=== PATIENT | male | born 1985 | race Caucasian/White ===

== ENCOUNTER 2017-04-18 23:43 | Emergency (ER) | payer OTHER ==
[2017-04-19] MEDS ORDERED: Lidocaine 1%* 5 ML VIAL ONE (01:54)
--- NOTE | 2017-04-19 02:15 | ED ---
Vj Goode Benjamin, scribed for Sandie Metz MD on 04/19/17 at 0212 . Laceration/Wound HPI - HPI Summary HPI Summary: 32yo male presents to ED with a left 2nd finger laceration from hatchet. Pt cut himself when trying to hatchet some wood logs around 19:30 tonight. Pt states hatchet has been only used to cutting hare previously. Left 2nd finger ROM intact. Last tetanus shot was within 10 years. - History of Current Complaint Stated Complaint: LT INDEX FINGER LAC Hx Obtained From: Patient Mechanism of Injury: Sharp/Blunt Trauma Onset/Duration: Sudden Onset, Still Present Aggravating: Nothing Alleviating: Nothing Timing: Constant Onset Severity: Mild Current Severity: Mild Pain Intensity: 2 Pain Scale Used: 0-10 Numeric Associated Signs & Symptoms: Negative - Allergy/Home Medications Allergies/Adverse Reactions: Allergies Allergy/AdvReac Type Severity Reaction Status Date / Time No Known Allergies Allergy Verified 04/18/17 23:49 PMH/Surg Hx/FS Hx/Imm Hx - Immunization History Date of Tetanus Vaccine: unknown Infectious Disease History: No Infectious Disease History: Denies: Traveled Outside the [place] in Last 30 Days Review of Systems Constitutional: Negative Eyes: Negative ENT: Negative Cardiovascular: Negative Respiratory: Negative Gastrointestinal: Negative Genitourinary: Negative Musculoskeletal: Negative Positive: Other - left 2nd finger laceration Neurological: Negative Psychological: Normal All Other Systems Reviewed And Are Negative: Yes Physical Exam Triage Information Reviewed: Yes Vital Signs On Initial Exam: Initial Vitals Temp Pulse Resp BP Pulse Ox 97.5 F 64 18 129/86 98 04/18/17 23:47 04/18/17 23:47 04/18/17 23:47 04/18/17 23:47 04/18/17 23:47 Vital Signs Reviewed: Yes Appearance: Positive: Well-Appearing, No Pain Distress, Well-Nourished Skin: Positive: Warm, Skin Color Reflects Adequate Perfusion, Dry, Other - 2cm laceration over the left 2nd proximal phalanx Head/Face: Positive: Normal Head/Face Inspection Eyes: Positive: Normal ENT: Positive: Normal ENT inspection Neck: Positive: Supple, Nontender Respiratory/Lung Sounds: Positive: Clear to Auscultation, Breath Sounds Present Cardiovascular: Positive: RRR Abdomen Description: Positive: Nontender, Soft Bowel Sounds: Positive: Present Musculoskeletal: Positive: Strength/ROM Intact Neurological: Positive: Sensory/Motor Intact, Alert, Oriented to Person Place, Time, CN Intact II-III Psychiatric: Positive: Affect/Mood Appropriate Procedures - Laceration/Wound Repair left 2nd finger Location: upper extremity Description: Linear Anesthesia: 1.0%, Lido Length, Depth and Shape: 2cm over the left 2nd proximal phalanx Betadine Prep?: Yes Irrigated w/ Saline (ccs): 250 Laceration/Wound Explored: clean Closure: Single Layer Suture Type: Nylon - 4-0 Number of Sutures: 3 Layer Closure?: Yes Sterile Dressing Applied?: Yes Diagnostics - Vital Signs Vital Signs Temp Pulse Resp BP Pulse Ox 04/18/17 23:47 97.5 F 64 18 129/86 98 - Laboratory Lab Statement: Any lab studies that have been ordered have been reviewed, and results considered in the medical decision making process. Laceration Repair Course/Dx - Course Course Of Treatment: 32 yo male sustained a laceration to left pointer finger 3 sutures placed pt tolerated procedure well - Clinical Impression Provider Diagnoses: Laceration Discharge - Discharge Plan Condition: Stable Disposition: HOME The documentation as recorded by the Vj larkin Benjamin accurately reflects the service I personally performed and the decisions made by , Sandie Metz MD.
[2017-04-19] MEDS ORDERED: Tetan/Diph/Pertus SYR(Tdap)* 0.5 ML SYR(BOOSTRIX) use SYR IM ONE (02:16)
[2017-04-19 02:33] VITALS: BP 127/73
== END 2017-04-19 02:33 | disposition home or self-care (01) ==
LOC: ED 23:43
DX: S61.211A Laceration without foreign body of left index finger without damage to nail, initial encounter (principal); W26.9XXA Contact with unspecified sharp object(s), initial encounter; Y93.89 Activity, other specified; Y92.89 Other specified places as the place of occurrence of the external cause
CPT/HCPCS: 90471; 90715; 99282